=== PATIENT | female | born 1990 | race Caucasian/White ===

== ENCOUNTER 2017-07-15 16:33 | Emergency (ER) | payer OTHER ==
[2017-07-15 16:36] VITALS: BP 137/60; PULSE 70; RESP 20; TEMP 98.7; O2SAT 100
[2017-07-15] MEDS ORDERED: TETANUS/DIPHTHERIA TOXOID ADULT 0.5 ML VIAL IM ONE (18:00)
[2017-07-15] MEDS ORDERED: RABIES IMMUNE GLOBULIN INJ 1,500 UNITS/10 ML VIAL IM ONE (18:30)
[2017-07-15] MEDS ORDERED: RABIES VACCINE HUMAN DIPL CELL 2.5 UNITS/ML SYRINGE IM ONE (18:30)
[2017-07-15 19:33] VITALS: BP 146/79; PULSE 68; O2SAT 100
--- NOTE | 2017-07-15 19:54 | PD ---
HPI Chief Complaint: Bite or Sting Time Seen by Provider: 18:17 Travel History International Travel<30 days: No Contact w/Intl Traveler<30days: No Traveled to known affect area: No History of Present Illness HPI 27-year-old female presents to the ED for evaluation of dog bite of the right leg. Sustained just for arrival. The patient states that she and her were out for a walk with 2 small dogs approached them and bit her right ankle through her jeans. She is unsure of the dog's owners her immunization status. Is unsure of her tetanus status. She denies numbness, tingling, weakness, limitations to range of motion of the extremity. PFSH Past Medical History Medical History: Denies Significant Hx Tetanus Vaccination: Unknown Influenza Vaccination: Yes ?: Not Past Surgical History Surgical History: No Previous Surgery Social History Alcohol Use: No Tobacco Use: No Substance Use: No Allergies-Medications (Allergen,Severity, Reaction): Coded Allergies: No Known Allergies (Unverified , 07/15/17) Reported Meds & Prescriptions Reported Meds & Active Scripts Active No Active Prescriptions or Reported Medications Review of Systems Except as stated in HPI: all other systems reviewed are Neg Physical Exam Narrative GENERAL: Well-nourished, well-developed female in no acute distress. SKIN: Focused skin assessment warm/dry. There is a single puncture wound on the lateral aspect of the right lower leg. No active bleeding or visible foreign body. HEAD: Normocephalic. EYES: No scleral icterus. No injection or drainage. NECK: Supple, trachea midline. No JVD or lymphadenopathy. CARDIOVASCULAR: Regular rate and rhythm without murmurs, gallops, or rubs. RESPIRATORY: Breath sounds equal bilaterally. No accessory muscle use. GASTROINTESTINAL: Abdomen soft, non-tender, nondistended. MUSCULOSKELETAL: No cyanosis, or edema. BACK: Nontender without obvious deformity. No CVA tenderness. Data Data Last Documented VS Vital Signs Date Time Temp Pulse Resp B/P (MAP) Pulse Ox O2 Delivery O2 Flow Rate FiO2 07/15/17 16:36 98.7 70 20 137/60 (85) 100 Orders Orders Tetanus/Diphtheria Tox Adult (Tetanus/Di (07/15/17 18:00) Rabies Immune Globulin Inj (Hyperrab S/D (07/15/17 18:30) Rabies Vaccine Human Cell Inj (Imovax In (07/15/17 18:30) Ed Discharge Order (07/15/17 19:54) [facility] Medical Decision Making Medical Screen Exam Complete: Yes Emergency Medical Condition: Yes Differential Diagnosis Dog bite versus prophylactic rabies immunoglobulin versus prophylactic vaccination versus other Narrative Course 27-year-old female presents to the ED for evaluation of dog bite of the right leg. The patient states that she and her were out for a walk with 2 small dogs approached them and bit her right ankle through her jeans. She is unsure of the dog's owners or immunization status. Is unsure of her tetanus status. I was reviewed. Physical exam reveals a single superficial puncture wound of the outer aspect of the right leg. 4 cc of IgG were injected into the area of the wound. After administration of the medication of the wound the patient had a pseudoseizure. She became tense and collapsed back on the bed with her eyes closed. She was immediately placed on the monitor. Vitals were within normal limits. After about 30 seconds to 1 minute she was able to answer questions appropriately and there were no focal neuro deficits. No postictal period. She agreed to continue with the remaining injections. The remaining IgG was administered by the nurse along with the tetanus immunization and rabies vaccine. Patient is instructed to monitor the wound for sign of infection, return on day 3, 7 and 14 for the remaining vaccination series. She indicated understanding of the instructions and is agreeable to care plan. Patient is stable and discharged home. Diagnosis Primary Impression: Animal bite Additional Impressions: Encounter for prophylactic administration of rabies immune globulin Need for prophylactic vaccination against rabies Referrals: Primary Care Physician Additional Instructions: Keep the wound clean, dry and covered. Return on days 3, 7 and 14 for immunization series. Return sooner if he had any problems with the wound or any urgent or emergent medical condition. Scripts No Active Prescriptions or Reported Meds Disposition: 01 DISCHARGE HOME Condition: Stable Jodee Lyles Jul 15, 2017 19:53
== END 2017-07-15 20:15 | disposition home or self-care (01) ==
LOC: PHED 16:33 → PHEFT 20:15
DX: S91.051A Open bite, right ankle, initial encounter (principal); W54.0XXA Bitten by dog, initial encounter; Y93.01 Activity, walking, marching and hiking; Z23 Encounter for immunization
CPT/HCPCS: 90375; 90471; 90472; 90675; 90714; 96372

== ENCOUNTER 2017-07-18 07:04 | Emergency (ER) | payer OTHER ==
[~2017-07-18] VITALS: Ht 157.5 cm; Wt 69.0 kg
[2017-07-18 07:10] VITALS: BP 115/64; PULSE 66; RESP 16; TEMP 97.6; O2SAT 97
[2017-07-18] MEDS ORDERED: RABIES VACCINE HUMAN DIPL CELL 2.5 UNITS/ML SYRINGE IM ONE (07:45)
--- NOTE | 2017-07-18 07:51 | PD ---
HPI Chief Complaint: Bite or Sting Time Seen by Provider: 07:22 Travel History International Travel<30 days: No Contact w/Intl Traveler<30days: No Traveled to known affect area: No History of Present Illness HPI This patient presents for a rabies vaccination. She will see her recently for dog bite and started the series. Symptom severity is mild. PFSH Past Medical History Medical History: Denies Significant Hx Immunizations Current: Yes ?: Not LMP: 07/15/2016 Past Surgical History Surgical History: No Previous Surgery Social History Alcohol Use: Yes (OCC) Tobacco Use: No (NEVER) Substance Use: No Allergies-Medications (Allergen,Severity, Reaction): Coded Allergies: No Known Allergies (Unverified , 07/18/17) Reported Meds & Prescriptions Reported Meds & Active Scripts Active No Active Prescriptions or Reported Medications Review of Systems General / Constitutional: No: Fever HENT: No: Headaches Cardiovascular: No: Chest Pain or Discomfort Physical Exam Narrative Psych: Normal mood and affect. Normal insight and judgment. SKIN: Focused skin assessment reveals no rash or ulcers. Skin is warm and dry. Palpation shows no induration or nodules. Examination of the dog bite on the leg shows a minor shallow wound without sign of infection Data Data Last Documented VS Vital Signs Date Time Temp Pulse Resp B/P (MAP) Pulse Ox O2 Delivery O2 Flow Rate FiO2 07/18/17 07:10 97.6 66 16 115/64 (81) 97 Orders Orders Rabies Vaccine Human Cell Inj (Imovax In (07/18/17 07:45) MDM Medical Decision Making Medical Screen Exam Complete: Yes Emergency Medical Condition: Yes Medical Record Reviewed: Yes Differential Diagnosis Rabies vaccination, wound check, wound infection Narrative Course I have reviewed the patient's electronic medical record. I gave her rabies vaccination #2. No sign of wound infection. Diagnosis Primary Impression: Need for prophylactic vaccination against rabies Additional Instructions: The patient was advised to follow up with their physician and return if they worsen. Med/Other Pt SpecificInfo: Other Scripts No Active Prescriptions or Reported Meds Disposition: 01 DISCHARGE HOME Condition: Stable Bruno Manzano MD Jul 18, 2017 07:51
== END 2017-07-18 08:18 | disposition home or self-care (01) ==
LOC: PHED 07:04
DX: S81.859D Open bite, unspecified lower leg, subsequent encounter (principal); W54.0XXD Bitten by dog, subsequent encounter; Z23 Encounter for immunization
CPT/HCPCS: 90471; 90675

== ENCOUNTER 2017-07-22 19:42 | Emergency (ER) | payer OTHER ==
[~2017-07-22] VITALS: Ht 157.5 cm; Wt 69.0 kg
[2017-07-22 20:45] VITALS: BP 126/59; PULSE 68; RESP 12; TEMP 98.9; O2SAT 100
[2017-07-22] MEDS ORDERED: [UNRECOGNIZED DRUG - REMARK] (21:15)
--- NOTE | 2017-07-22 21:49 | PD ---
HPI Chief Complaint: Wound/Suture/Staple Re-Check Time Seen by Provider: 21:31 Travel History International Travel<30 days: No Contact w/Intl Traveler<30days: No Traveled to known affect area: No History of Present Illness HPI Patient returns for her routine vaccination of rabies this would be her third dose in series of 4 doses total....due to dog bite 7 days ago, no redness, no oozing at site...also denies any muscle stiffness or difficulty breathing. patient denies any other complaints PFS Past Medical History Immunizations Current: Yes ?: Not LMP: 07/15/17 Social History Alcohol Use: Yes (OCC) Tobacco Use: No (NEVER) Substance Use: No Allergies-Medications (Allergen,Severity, Reaction): Coded Allergies: No Known Allergies (Unverified , 07/29/17) Reported Meds & Prescriptions Reported Meds & Active Scripts Active Reported [ COntrol Pill] Review of Systems Except as stated in HPI: all other systems reviewed are Neg Physical Exam Narrative GENERAL: SKIN: Warm and dry. Healing puncture wounds noted on patient's lower extremities over on her right lower extremity near the distal tib-fib area. This area does not show any evidence of cellulitis, lymphangitis, or abscess. HEAD: Atraumatic. Normocephalic. EYES: Pupils equal and round. No scleral icterus. No injection or drainage. ENT: No nasal bleeding or discharge. Mucous membranes pink and moist. NECK: Trachea midline. No JVD. CARDIOVASCULAR: Regular rate and rhythm. RESPIRATORY: No accessory muscle use. Clear to auscultation. Breath sounds equal bilaterally. GASTROINTESTINAL: Abdomen soft, non-tender, nondistended. MUSCULOSKELETAL: Extremities without clubbing, cyanosis, or edema. No obvious deformities. NEUROLOGICAL: Awake and alert. No obvious cranial nerve deficits. Motor grossly within normal limits. Five out of 5 muscle strength in the arms and legs. Normal speech. PSYCHIATRIC: Appropriate mood and affect; insight and judgment normal. Data Data Last Documented VS Orders Orders Rabies Vaccine Human Cell Inj (Imovax In (07/22/17 22:00) Ed Discharge Order (07/22/17 22:05) [facility] Medical Decision Making Medical Screen Exam Complete: Yes Emergency Medical Condition: No Medical Record Reviewed: Yes Differential Diagnosis n/a Narrative Course Patient clinically does not show any evidence of cellulitis, lymphangitis, abscess on examination. Therefore patient is here only for completion of her vaccination series Diagnosis Primary Impression: Encounter for prophylactic administration of rabies immune globulin Patient Instructions: General Instructions, Rabies Vaccine (By injection) Disposition: 01 DISCHARGE HOME Condition: Stable Sarwta Merino MD Jul 22, 2017 21:49
[2017-07-22] MEDS ORDERED: RABIES VACCINE HUMAN DIPL CELL 2.5 UNITS/ML SYRINGE IM ONE (22:00)
== END 2017-07-22 22:22 | disposition home or self-care (01) ==
LOC: PHED 19:42 → PHEFT 22:22
DX: Z23 Encounter for immunization (principal)
CPT/HCPCS: 90471; 90472; 90675; 99281

== ENCOUNTER 2017-07-29 19:43 | Emergency (ER) | payer OTHER ==
[~2017-07-29] VITALS: Ht 157.5 cm; Wt 69.1 kg
[~2017-07-29 19:43] MED LIST: [UNRECOGNIZED DRUG - REMARK]
[2017-07-29 19:56] VITALS: BP 124/54; PULSE 60; RESP 16; TEMP 98; O2SAT 100
[2017-07-29] MEDS ORDERED: RABIES VACCINE CHICK EMB INJ 2.5 UNITS/ML SYR IM ONE (20:15)
--- NOTE | 2017-07-29 20:16 | PD ---
HPI Chief Complaint: Bite or Sting Time Seen by Provider: 20:06 Travel History International Travel<30 days: No Contact w/Intl Traveler<30days: No Traveled to known affect area: No History of Present Illness HPI 27-year-old female is here requesting final dose of rabies vaccination series. She sustained a dog bite earlier in July. She denies any pain at the site of the puncture wound on the left lower leg. No complaints. PFSH Past Medical History Immunizations Current: Yes ?: Not Social History Alcohol Use: Yes (OCC) Tobacco Use: No (NEVER) Substance Use: No Allergies-Medications (Allergen,Severity, Reaction): Coded Allergies: No Known Allergies (Unverified , 07/29/17) Reported Meds & Prescriptions Reported Meds & Active Scripts Active Reported [ COntrol Pill] Review of Systems General / Constitutional: Positive: Other (positive for requesting rabies vaccination), No: Fever Skin: Positive Other (dog bite) Physical Exam Narrative GENERAL: Well-nourished female in no acute distress SKIN: Warm and dry. Well healing puncture wound to the left lower leg. CARDIOVASCULAR: Regular rate and rhythm. No murmur appreciated. RESPIRATORY: No accessory muscle use. Clear to auscultation. Breath sounds equal bilaterally. Data Data Last Documented VS Vital Signs Date Time Temp Pulse Resp B/P (MAP) Pulse Ox O2 Delivery O2 Flow Rate FiO2 07/29/17 19:56 98.0 60 16 124/54 (77) 100 Orders Orders Rabies Vaccine Chick Emb Inj (Rabavert I (07/29/17 20:15) Ed Discharge Order (07/29/17 20:15) MDM Medical Decision Making Medical Screen Exam Complete: Yes Emergency Medical Condition: Yes Medical Record Reviewed: Yes Differential Diagnosis Rabies vaccination, puncture wound, dog bite Narrative Course Rabies vaccination will be administered. Diagnosis Primary Impression: Need for prophylactic vaccination against rabies Med/Other Pt SpecificInfo: No Change to Meds Disposition: 01 DISCHARGE HOME Condition: Stable Wilfred Patel Jul 29, 2017 20:16
== END 2017-07-29 20:37 | disposition home or self-care (01) ==
LOC: PHEFT 19:43
DX: Z23 Encounter for immunization (principal); W54.0XXA Bitten by dog, initial encounter
CPT/HCPCS: 90471; 90675